=== PATIENT | male | born 1975 | race Caucasian/White ===

== ENCOUNTER 2019-06-30 08:20 | Outpatient (CLI) | payer OTHER ==
--- NOTE | 2019-06-30 10:40 | MRI ---
BRAIN MRI WITH AND WITHOUT CONTRAST: HISTORY: Hyperprolactinemia. COMPARISON: None. FINDINGS: Brain MRI: Hemorrhage: No parenchymal hemorrhage. No extraaxial hematoma. Calvarium: Appropriate T1 marrow signal intensity. Midline brain parenchyma: Unremarkable. Cerebrum:No parenchymal mass, mass effect or midline shift. Brain volume is age-appropriate. Cortical mckeon-white matter differentiation is preserved. No significant T2 or FLAIR white matter hyperintensities. Ventricles: No evidence of hydrocephalus. Sinuses and mastoid air cells: Mild mucosal thickening of the paranasal sinuses. Adequate mastoid air cell aeration. Diffusion: Central arterial flow is maintained. Absent restricted diffusion. Postcontrast images: No pathologic enhancement of the brain parenchyma. Pituitary gland MRI: Pituitary stalk is midline. No mass effect upon the optic chiasm and prechiasmatic nerves. In the pos terior left aspect of the sella, there is a T1 hypointense focus with delayed enhancement. This focus measures 0.8 cm mediolateral by 0.4 cm anterior-posterior by 0.8 cm craniocaudal. Microadenoma is favored. No evidence of suprasellar extension. IMPRESSION: 1. No acute intracranial process with respect to the brain parenchyma. 2. 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 Exam was reviewed in conjunction with Dr. العلي. Transcribed Date/Time: 06/30/2019 11:14 AM
== END 2019-06-30 08:21 | disposition home or self-care (01) ==
LOC: SCSMRI 08:20
PROVIDERS: ATTEND Urology
DX: E22.1 Hyperprolactinemia (principal); D35.2 Benign neoplasm of pituitary gland
CPT/HCPCS: 70553